=== PATIENT | female | born 1995 | race Caucasian/White ===

== ENCOUNTER 2016-10-30 15:20 | Emergency (ER) | payer OTHER ==
[~2016-10-30] VITALS: Ht 152.4 cm; Wt 78.0 kg
[~2016-10-30 15:20] MED LIST: MACR100C PO
[2016-10-30 15:22] VITALS: BP 129/79; PULSE 88; RESP 16; TEMP 97.9; O2SAT 96
[2016-10-30 15:38] VITALS: BP 127/74; PULSE 103; RESP 20; TEMP 98.6; O2SAT 96
[2016-10-30] MEDS ORDERED: IBUP200C PO (15:42)
[2016-10-30] MEDS ORDERED: NORE1CHW8 PO (16:22)
--- NOTE | 2016-10-30 16:22 | PD ---
HPI Chief Complaint: [employer] Problem/Complaint Time Seen by Provider: 15:33 Travel History International Travel<30 days: No Contact w/Intl Traveler<30days: No Traveled to known affect area: No History of Present Illness HPI To 21 year-old woman who presents to the emergency department complaining of vaginal bleeding ongoing for 2 months. She's had 4 months of irregular heavy bleeding. She had a copper IUD placed about a year or so ago. She had heavy menstrual cycles before that. She been having headaches as well as lightheadedness and faintness when she stands up. She has an appointment with the [facility] doctor for another month or so. Came back in today for the persistent heavy bleeding. No swimming of pain. No other complaints. History Past Medical History Medical History: Denies Significant Hx Influenza Vaccination: No LMP: 10/30/16 Past Surgical History Surgical History: No Previous Surgery Social History Alcohol Use: No Tobacco Use: No Allergies-Medications (Allergen,Severity, Reaction): Coded Allergies: No Known Allergies (Unverified , 10/30/16) Reported Meds & Prescriptions Reported Meds & Active Scripts Active Norethindrone-Ethinyl Estradiol 0.4-35 Mg-Mcg Chew 1 Tab PO DIRECTED Take 5 pills on day one, 4 pills on day 2, 3 pills on day 3, 2 pills on day 4, and one pill each day as directed to finish the pack. Reported Ibuprofen 200 Mg Cap 200 Mg PO Q4H PRN Review of Systems Except as stated in HPI: all other systems reviewed are Neg Physical Exam Narrative GENERAL: 21-year-old woman, no acute distress. SKIN: Warm and dry. CARDIOVASCULAR: Warm and well perfused. RESPIRATORY: Normal rate and effort. Abdomen: Soft, nontender nondistended. NEUROLOGICAL: Awake and alert. No gross deficits. Data Data Last Documented VS Vital Signs Date Time Temp Pulse Resp B/P Pulse Ox O2 Delivery O2 Flow Rate FiO2 10/30/16 15:38 98.6 103 20 127/74 96 10/30/16 15:22 Room Air Orders Complete Blood Count With Diff (10/30/16 16:02) Ed Urine Pregnancytest Poc (10/30/16 16:02) Labs Laboratory Tests Test 10/30/16 16:12 White Blood Count 10.2 TH/MM3 Red Blood Count 4.46 MIL/MM3 Hemoglobin 12.6 GM/DL Hematocrit 37.1 % Mean Corpuscular Volume 83.2 FL Mean Corpuscular Hemoglobin 28.3 PG Mean Corpuscular Hemoglobin 34.0 % Concent Red Cell Distribution Width 13.1 % Platelet Count 262 TH/MM3 Mean Platelet Volume 8.5 FL Neutrophils (%) (Auto) 58.6 % Lymphocytes (%) (Auto) 28.0 % Monocytes (%) (Auto) 11.0 % Eosinophils (%) (Auto) 1.7 % Basophils (%) (Auto) 0.7 % Neutrophils # (Auto) 6.0 TH/MM3 Lymphocytes # (Auto) 2.9 TH/MM3 Monocytes # (Auto) 1.1 TH/MM3 Eosinophils # (Auto) 0.2 TH/MM3 Basophils # (Auto) 0.1 TH/MM3 CBC Comment DIFF FINAL Differential Comment MDM Medical Decision Making Medical Screen Exam Complete: Yes Emergency Medical Condition: Yes Interpretation(s) CBC unremarkable Point of care hCG negative Differential Diagnosis Menorrhagia, DVT, adverse effect of copper IUD Narrative Course Medical decision making INITIAL: Is a 41-year-old woman who presents emergency Department with heavy menstrual bleeding. Likely related to her Copper IUD although she had some menorrhagia prior to this. She is 21. She otherwise looks well. Reviewed previous workup including ultrasound and labs. We will do OCPs taper for menstrual suppression, outpatient follow-up. Diagnosis Primary Impression: Dysfunctional uterine bleeding Additional Instructions: Take OCPs as prescribed. Follow-up with [facility] as scheduled. Return to the emergency department for any worsening abdominal pain, bleeding more than 1 pad per hour, fainting, or any other new or worsening symptoms. Med/Other Pt SpecificInfo: Prescription(s) given Scripts Norethindrone-Ethinyl Estradiol 0.4-35 Mg-Mcg Chew1 Tab PO DIRECTED #3 PACK Ref 0 Take 5 pills on day one, 4 pills on day 2, 3 pills on day 3, 2 pills on day 4, and one pill each day as directed to finish the pack. Prov:Bryce Grimm MD 10/30/16 Disposition: 01 DISCHARGE HOME Condition: Stable Bryce Grimm MD Oct 30, 2016 16:22
[2016-10-30 16:52] LABS: BASOPHIL # 0.1 TH/MM3 (0-0.2); BASOPHIL % 0.7 % (0.0-2.0); EOSINOPHIL # 0.2 TH/MM3 (0-0.4); EOSINOPHIL % 1.7 % (0.0-4.0); HEMATOCRIT 37.1 % (35.0-46.0); HEMO FLAGS DIFF FINAL; LYMPHOCYTE # 2.9 TH/MM3 (1.0-4.8); MEAN CELL VOLUME 83.2 FL (80.0-100.0); MEAN CORPUSCULAR HEMOGLOBIN 28.3 PG (27.0-34.0); NEUT % 58.6 % (16.0-70.0); PLATELET COUNT 262 TH/MM3 (150-450); RED BLOOD COUNT 4.46 MIL/MM3 (4.00-5.30); RED CELL DISTRIBUTION WIDTH 13.1 % (11.6-17.2); WHITE BLOOD COUNT 10.2 TH/MM3 (4.0-11.0)
== END 2016-10-30 17:12 | disposition home or self-care (01) ==
LOC: NEPC 15:20
DX: N93.8 Other specified abnormal uterine and vaginal bleeding (principal)
CPT/HCPCS: 84703; 85025; 99284

== ENCOUNTER 2016-11-06 18:49 | Emergency (ER) | payer OTHER ==
[~2016-11-06] VITALS: Ht 152.4 cm; Wt 77.3 kg
[~2016-11-06 18:49] MED LIST changes: +IBUP200C PO; -MACR100C PO; +NORE1CHW8 PO
[2016-11-06 18:51] VITALS: BP 138/81; PULSE 120; RESP 20; TEMP 98.9; O2SAT 95
[2016-11-07] MEDS ORDERED: OSEL75 PO (22:47)
[2016-11-07] MEDS ORDERED: ZOFR4TAB3 SL (22:47)
== END 2016-11-06 22:47 | disposition left against medical advice (07) ==
LOC: NED 18:49
DX: Z53.21 Procedure and treatment not carried out due to patient leaving prior to being seen by health care provider (principal)
CPT/HCPCS: 99281

== ENCOUNTER 2016-11-07 18:13 | Emergency (ER) | payer OTHER ==
[~2016-11-07] VITALS: Ht 160 cm; Wt 70.0 kg
[2016-11-07 18:15] VITALS: BP 117/62; PULSE 139; RESP 14; TEMP 103; O2SAT 96
--- NOTE | 2016-11-07 19:26 | PD ---
HPI Chief Complaint: GI Complaint Time Seen by Provider: 19:26 Travel History International Travel<30 days: No Contact w/Intl Traveler<30days: No Traveled to known affect area: No History of Present Illness HPI 21-year-old female with no significant medical history presents to emergency department for evaluation of nausea, vomiting, fever, and chills worsening over the last 2 days. Patient has had a cough and chest congestion but developed fever yesterday. She has been having diarrhea today. No urinary symptoms. No chest pain. Mild chest tightness. No other symptoms to report. PFSH Past Medical History Medical History: Denies Significant Hx ?: Not Social History Alcohol Use: No Tobacco Use: No Substance Use: No Allergies-Medications (Allergen,Severity, Reaction): Coded Allergies: No Known Allergies (Unverified , 10/30/16) Reported Meds & Prescriptions Reported Meds & Active Scripts Active Zofran Odt (Ondansetron Odt) 4 Mg Tab 4 Mg SL Q6HR PRN Tamiflu (Oseltamivir Phosphate) 75 Mg Cap 75 Mg PO BID Norethindrone-Ethinyl Estradiol 0.4-35 Mg-Mcg Chew 1 Tab PO DIRECTED Take 5 pills on day one, 4 pills on day 2, 3 pills on day 3, 2 pills on day 4, and one pill each day as directed to finish the pack. Reported Ibuprofen 200 Mg Cap 200 Mg PO Q4H PRN Review of Systems Except as stated in HPI: all other systems reviewed are Neg Physical Exam Narrative GENERAL: Well-nourished female patient, lying in bed, no acute distress SKIN: Warm and dry. HEAD: Atraumatic. Normocephalic. EYES: Pupils equal and round. No scleral icterus. No injection or drainage. ENT: Mucosa pink and moist. Very tongue, pharynx erythematous with moderate tonsillar edema and few exudates. No uvular edema. No uvular, palatal, or tonsillar deviation. Airway patent. Nasal turbinates appear normal without nasal blood, purulent drainage or septal hematoma. NECK: Trachea midline. No JVD. CARDIOVASCULAR: Tachycardic rate and rhythm. No murmur appreciated. RESPIRATORY: No accessory muscle use. Coarse but clear to cough, auscultation. Breath sounds equal bilaterally. GASTROINTESTINAL: Abdomen soft, non-tender, nondistended. Hepatic and splenic margins not palpable. MUSCULOSKELETAL: No obvious deformities. No clubbing. No cyanosis. No edema. NEUROLOGICAL: Awake and alert. No obvious cranial nerve deficits. Motor grossly within normal limits. Normal speech. PSYCHIATRIC: Appropriate mood and affect; insight and judgment normal. Data Data Last Documented VS Vital Signs Date Time Temp Pulse Resp B/P Pulse Ox O2 Delivery O2 Flow Rate FiO2 11/07/16 22:29 110 18 114/57 98 Room Air 11/07/16 21:25 101.0 Orders Urinalysis - C+S If Indicated (11/07/16 19:26) Complete Blood Count With Diff (11/07/16 19:26) Basic Metabolic Panel (Bmp) (11/07/16 19:26) Influenzae A/B Antigen (11/07/16 19:26) Group A Rapid Strep Screen (11/07/16 19:26) Ed Urine Pregnancytest Poc (11/07/16 19:26) Chest, Single Ap (11/07/16 ) Ibuprofen (Motrin) (11/07/16 19:30) Strep Culture (Group A) (11/07/16 20:25) Oseltamivir (Tamiflu) (11/07/16 22:45) Labs Laboratory Tests Test 11/07/16 20:25 White Blood Count 7.7 TH/MM3 Red Blood Count 4.35 MIL/MM3 Hemoglobin 12.2 GM/DL Hematocrit 36.0 % Mean Corpuscular Volume 82.8 FL Mean Corpuscular Hemoglobin 28.1 PG Mean Corpuscular Hemoglobin 34.0 % Concent Red Cell Distribution Width 13.8 % Platelet Count 215 TH/MM3 Mean Platelet Volume 8.5 FL Neutrophils (%) (Auto) 78.5 % Lymphocytes (%) (Auto) 7.1 % Monocytes (%) (Auto) 14.0 % Eosinophils (%) (Auto) 0.0 % Basophils (%) (Auto) 0.4 % Neutrophils # (Auto) 6.0 TH/MM3 Lymphocytes # (Auto) 0.5 TH/MM3 Monocytes # (Auto) 1.1 TH/MM3 Eosinophils # (Auto) 0.0 TH/MM3 Basophils # (Auto) 0.0 TH/MM3 CBC Comment DIFF FINAL Differential Comment Urine Color YELLOW Urine Turbidity CLEAR Urine pH 5.5 Urine Specific [place] 1.027 Urine Protein TRACE mg/dL Urine Glucose (UA) NEG mg/dL Urine Ketones NEG mg/dL Urine Occult Blood TRACE Urine Nitrite NEG Urine Bilirubin NEG Urine Urobilinogen 2.0 MG/DL Urine Leukocyte Esterase NEG Urine RBC 1 /hpf Urine WBC 3 /hpf Urine Squamous Epithelial 1 /hpf Cells Microscopic Urinalysis Comment CULT NOT INDICATED Sodium Level 133 MEQ/L Potassium Level 3.6 MEQ/L Chloride Level 100 MEQ/L Carbon Dioxide Level 23.2 MEQ/L Anion Gap 10 MEQ/L Blood Urea Nitrogen 6 MG/DL Creatinine 0.73 MG/DL Estimat Glomerular Filtration 102 ML/MIN Rate Random Glucose 102 MG/DL Calcium Level 8.1 MG/DL [facility] Medical Decision Making Medical Screen Exam Complete: Yes Emergency Medical Condition: Yes Medical Record Reviewed: Yes Differential Diagnosis Influenza versus pneumonia versus gastroenteritis versus UTI versus sepsis Narrative Course 21 year-old female presents to emergency department for evaluation. Workup was initiated in triage. Once a medical bed becomes available, patient will be transferred and care assumed by the provider. Scripts Ondansetron Odt (Zofran Odt)4 Mg Tab4 Mg SL Q6HR PRN (Nausea/Vomiting) #4 TAB Ref 0 Prov:Sommer Boone MD 11/07/16 Oseltamivir (Tamiflu)75 Mg Cap75 Mg PO BID #9 CAP Ref 0 Prov:Sommer Boone MD 11/07/16 Condition: Stable Ange Trinh Nov 07, 2016 19:26
[2016-11-07] MEDS ORDERED: IBUPROFEN 800 MG TAB PO ONE (19:30)
--- NOTE | 2016-11-07 20:52 | RADRPT ---
EXAM DATE/TIME: 11/07/2016 19:45 [place] COMPARISON: No previous studies available for comparison. INDICATIONS : Fever with shortness of breath. MEDICAL HISTORY : None. SURGICAL HISTORY : None. ENCOUNTER: Initial ACUITY: 1 week PAIN SCORE: 5/10 LOCATION: Bilateral chest FINDINGS: A single view of the chest demonstrates the lungs to be symmetrically aerated without evidence of mas s, infiltrate or effusion. The cardiomediastinal contours are unremarkable. Osseous structures are intact. CONCLUSION: Normal examination. Reuben Berman Jr., MD on November 07, 2016 at 20:50 Board Certified Radiologist. This report was verified electronically.
[2016-11-07 20:55] LABS: BASOPHIL % 0.4 % (0.0-2.0); HEMO FLAGS DIFF FINAL; LYMPH % 7.1 % (9.0-44.0); LYMPHOCYTE # 0.5 TH/MM3 (1.0-4.8); MEAN CELL VOLUME 82.8 FL (80.0-100.0); MEAN CORPUSCULAR HEMOGLOBIN 28.1 PG (27.0-34.0); NEUT % 78.5 % (16.0-70.0); PLATELET COUNT 215 TH/MM3 (150-450); RED BLOOD COUNT 4.35 MIL/MM3 (4.00-5.30); RED CELL DISTRIBUTION WIDTH 13.8 % (11.6-17.2); WHITE BLOOD COUNT 7.7 TH/MM3 (4.0-11.0)
[2016-11-07 20:57] LABS: BLOOD, URINE TRACE (NEG); COMMENT (UR) CULT NOT INDICATED; CULTURE IF INDICATED CULT NOT INDICATED; GLUCOSE,URINE NEG (NEG); KETONE, URINE NEG (NEG); NITRITE,URINE NEG (NEG); PH, URINE 5.5 (5.0-8.5); SQUAMOUS EPITHELIAL CELL URINE 1 /hpf (0-5); URINE COLOR YELLOW (YELLW/STRAW)
[2016-11-07 21:11] LABS: BICARBONATE 23.2 MEQ/L (21.0-32.0); POTASSIUM 3.6 MEQ/L (3.5-5.1)
[2016-11-07 21:25] VITALS: TEMP 101
[2016-11-07 22:29] VITALS: BP 114/57; PULSE 110; RESP 18; O2SAT 98
[2016-11-07] MEDS ORDERED: OSELTAMIVIR PHOSPHATE 75 MG CAP PO ONE (22:45)
[2016-11-07] MEDS ORDERED: OSEL75 PO (22:47)
[2016-11-07] MEDS ORDERED: ZOFR4TAB3 SL (22:47)
--- NOTE | 2016-11-07 22:49 | PD ---
Physical Exam Narrative General: The patient is a well-developed well-nourished female in no acute distress. Head and Neck exam: Head is normocephalic atraumatic. Eyes: Pupils are equal round and reactive to light. Nose: Midline septum with erythematous edematous nasal mucosa and a clear nasal discharge. Mouth: Dentition unremarkable. Moist mucus membranes. Posterior oropharynx is slightly erythematous. No tonsillar hypertrophy. Uvula midline. Airway patent. Neck: No palpable lymphadenopathy. No nuchal rigidity. No thyromegaly. Cardiovascular: Sinus tachycardia in the low 100 without murmurs, gallops, or rubs. Lungs: Clear to auscultation bilaterally. No wheezes, rhonchi, or rales. Abdomen: Soft, without tenderness to palpation in all 4 quadrants of the abdomen. No guarding, rebound, or rigidity. Normal bowel sounds are audible. Extremities: No clubbing, cyanosis, or edema. 2+ pulses in all 4 extremities. Back: No spinous process tenderness to palpation. No costovertebral angle tenderness to palpation. Neurologic Exam: Grossly nonfocal. Skin Exam: No rash noted. Intact skin that is warm and dry. Data Data Last Documented VS Vital Signs Date Time Temp Pulse Resp B/P Pulse Ox O2 Delivery O2 Flow Rate FiO2 11/07/16 22:29 110 18 114/57 98 Room Air 11/07/16 21:25 101.0 Orders Urinalysis - C+S If Indicated (11/07/16 19:26) Complete Blood Count With Diff (11/07/16 19:26) Basic Metabolic Panel (Bmp) (11/07/16 19:26) Influenzae A/B Antigen (11/07/16 19:26) Group A Rapid Strep Screen (11/07/16 19:26) Ed Urine Pregnancytest Poc (11/07/16 19:26) Chest, Single Ap (11/07/16 ) Ibuprofen (Motrin) (11/07/16 19:30) Strep Culture (Group A) (11/07/16 20:25) Oseltamivir (Tamiflu) (11/07/16 22:45) Labs Laboratory Tests Test 11/07/16 20:25 White Blood Count 7.7 TH/MM3 Red Blood Count 4.35 MIL/MM3 Hemoglobin 12.2 GM/DL Hematocrit 36.0 % Mean Corpuscular Volume 82.8 FL Mean Corpuscular Hemoglobin 28.1 PG Mean Corpuscular Hemoglobin 34.0 % Concent Red Cell Distribution Width 13.8 % Platelet Count 215 TH/MM3 Mean Platelet Volume 8.5 FL Neutrophils (%) (Auto) 78.5 % Lymphocytes (%) (Auto) 7.1 % Monocytes (%) (Auto) 14.0 % Eosinophils (%) (Auto) 0.0 % Basophils (%) (Auto) 0.4 % Neutrophils # (Auto) 6.0 TH/MM3 Lymphocytes # (Auto) 0.5 TH/MM3 Monocytes # (Auto) 1.1 TH/MM3 Eosinophils # (Auto) 0.0 TH/MM3 Basophils # (Auto) 0.0 TH/MM3 CBC Comment DIFF FINAL Differential Comment Urine Color YELLOW Urine Turbidity CLEAR Urine pH 5.5 Urine Specific [place] 1.027 Urine Protein TRACE mg/dL Urine Glucose (UA) NEG mg/dL Urine Ketones NEG mg/dL Urine Occult Blood TRACE Urine Nitrite NEG Urine Bilirubin NEG Urine Urobilinogen 2.0 MG/DL Urine Leukocyte Esterase NEG Urine RBC 1 /hpf Urine WBC 3 /hpf Urine Squamous Epithelial 1 /hpf Cells Microscopic Urinalysis Comment CULT NOT INDICATED Sodium Level 133 MEQ/L Potassium Level 3.6 MEQ/L Chloride Level 100 MEQ/L Carbon Dioxide Level 23.2 MEQ/L Anion Gap 10 MEQ/L Blood Urea Nitrogen 6 MG/DL Creatinine 0.73 MG/DL Estimat Glomerular Filtration 102 ML/MIN Rate Random Glucose 102 MG/DL Calcium Level 8.1 MG/DL [facility] Medical Record Reviewed: Yes Supervised Visit with NANDO: No Interpretation(s) Last Impressions Chest X-Ray 11/07/16 0000 Signed Impressions: Service Date/Time: Monday, November 07, 2016 19:45 - CONCLUSION: Normal examination. Reuben Berman Jr., MD Differential Diagnosis Bronchitis, versus pneumonia, versus influenza, versus viral syndrome, versus strep pharyngitis Narrative Course During the course of the patients emergency department visit, the patients history, examination, and differential diagnosis were reviewed with the patient. The patient had blood work sent for analysis. The patient was initially evaluated by Ange, the nurse practitioner. Niles see her complete history and physical. The workup was started by her. The patient is a 21-year- old female who presents to [facility] emergency department with a reported history of cough, congestion, fever, decreased appetite, posttussive emesis that began 2 days ago. The patient arrives with a temperature of 103. She was given ibuprofen for fever, her temperature quickly went down to 101. The patients laboratory studies were reviewed and remarkable for a white count of 7.7, hemoglobin 12.2, platelets 2:15 with 78.5 neutrophils, lymphocytes 7.1, monocytes 14, CMP is remarkable for sodium of 133, BUN 6, calcium 8.1, urinalysis is unremarkable. Rapid strep test is negative. Influenza antigen is positive for influenza A. Radiology studies were reviewed and remarkable for a chest x-ray that is unremarkable. The patient was given Tamiflu 75 mg by mouth 1. The patient will be discharged home with a prescription for Tamiflu and Zofran for nausea. The patient is resting comfortably and feels better, is alert and in no distress. The patients results and examination findings were discussed with the patient. The repeat examination is unremarkable and benign. The history, exam, diagnostic testing, and current condition do not suggest any significant pathology to warrant further testing, continued ED treatment, admission, or surgical evaluation at this point. The vital signs have been stable. The patient does not have uncontrollable pain, intractable vomiting, or other significant symptoms. The patient's condition is stable and appropriate for discharge. The patient will pursue further outpatient evaluation with a primary care physician or other designated or consulting physician as indicated in the discharge instructions. The patient expressed understanding and was agreeable with this plan. Diagnosis Primary Impression: Influenza A Referrals: Primary Care Physician 1 week Patient Instructions: General Instructions, H1N1 Influenza (ED) Med/Other Pt SpecificInfo: Prescription(s) given Scripts Ondansetron Odt (Zofran Odt)4 Mg Tab4 Mg SL Q6HR PRN (Nausea/Vomiting) #4 TAB Ref 0 Prov:Sommer Boone MD 11/07/16 Oseltamivir (Tamiflu)75 Mg Cap75 Mg PO BID #9 CAP Ref 0 Prov:Sommer Boone MD 11/07/16 Disposition: 01 DISCHARGE HOME Condition: Stable Sommer Boone MD Nov 07, 2016 22:49
== END 2016-11-07 23:32 | disposition home or self-care (01) ==
LOC: NEPE 18:13
DX: J10.1 Influenza due to other identified influenza virus with other respiratory manifestations (principal); R00.0 Tachycardia, unspecified
CPT/HCPCS: 71010; 80048; 81001; 84703; 85025; 87081; 87804; 87880; 99284